=== PATIENT | male | born 1995 | race Caucasian/White ===

== ENCOUNTER 2019-07-09 23:20 | Emergency (ER) | payer OTHER ==
[2019-07-09] MEDS ORDERED: FLUORESCEIN SODIUM OPHTH STRIP LEFT_EYE ONE (23:35)
[2019-07-09] MEDS ORDERED: TETRACAINE HCL 0.5% OPHTH SOL 1 DROP ONE (23:35)
[2019-07-09] MEDS ORDERED: TETRACAINE HCL 0.5% OPHTH SOL 1 DROP LEFT_EYE ONE (23:35)
[2019-07-09] MEDS ORDERED: ERYTHROMYCIN OPHTH OINT 1 APPLIC LEFT_EYE ONE (23:43)
[2019-07-09 23:46] VITALS: TEMP 98.9; O2SAT 98
--- NOTE | 2019-07-09 23:46 | ED.PDOC ---
History of Present Illness - General Chief Complaint: Eye Problems Stated Complaint: foreign body in left eye Time Seen by Provider: 07/09/19 23:34 Source: patient Exam Limitations: no limitations - History of Present Illness Initial Comments: the patient is a 24-year-old male presenting to the emergency room secondary to left eye discomfort for the last 3 days. He was working outside when he got something in it. He has had subsequent burning and stinging and mild blurry vision since. On fluorescein exam here the patient does appear to have a small corneal abrasion at approximately 3:00. It does appear fairly superficial. I see no evidence of any foreign body otherwise in the eye or underneath the eyelids. Pupil is reactive. Red reflexes present. Timing/Duration: other - 3 days Severity: moderate Improving Factors: nothing Worsening Factors: nothing Associated Symptoms: denies symptoms Allergies/Adverse Reactions: Allergies NO KNOWN ALLERGY Allergy (Verified 09/12/14 22:25) Home Medications: Ambulatory Orders Acetaminophen W/ Codeine [Tylenol w/Codeine 300-30 mg] 1 tab PO Q3-4H PRN #30 tab 09/12/14 Gentamicin 0.3% Ophth Andra [Garamycin Opthalmic Solution] 1 drop BOTH_EARS Q4-6H #1 bottle 09/12/14 Review of Systems - Review of Systems Constitutional: States: no symptoms reported EENTM: States: see HPI Respiratory: States: no symptoms reported Cardiology: States: no symptoms reported Gastrointestinal/Abdominal: States: no symptoms reported Genitourinary: States: no symptoms reported Musculoskeletal: States: no symptoms reported Skin: States: no symptoms reported Neurological: States: no symptoms reported Endocrine: States: no symptoms reported All other Systems: No Change from Baseline Past Medical History (General) - Patient Medical History Hx Seizures: No Hx Stroke: No Hx Dementia: No Hx Asthma: No Hx of COPD: No Hx Cardiac Disorders: No Hx Congestive Heart Failure: No Hx Pacemaker: No Hx Hypertension: No Hx Thyroid Disease: No Hx Diabetes: No Hx Gastroesophageal Reflux: No Hx Renal Disease: No Hx Cancer: No Hx of HIV: No Hx Hepatitis C: No Hx MRSA: No - Vaccination History Hx Tetanus, Diphtheria Vaccination: Yes - Social History Hx Tobacco Use: No Hx Alcohol Use: Yes Hx Substance Use: No Hx Substance Use Treatment: No Hx Depression: No - Female History Patient : No Family Medical History - Family History Mother Family History: Unknown Physical Exam - Physical Exam General Appearance: Alert, Comfortable, No apparent distress Eye Exam: right normal, left other - see history of present illness Ears, Nose, Throat: hearing grossly normal, normal pharynx Neck: full range of motion Respiratory: no respiratory distress, no accessory muscle use Cardiovascular/Chest: normal peripheral pulses, no edema Peripheral Pulses: radial,right: 2+, radial,left: 2+ Gastrointestinal/Abdominal: other - obese Rectal Exam: deferred Extremity: normal range of motion, no pedal edema, normal capillary refill 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 I found no evidence of any foreign body on the exam. Motrin or Aleve can be used for discomfort. He will be written for erythromycin ointment to be used for the next week. He needs to avoid direct airflow to the eye. He needs to wear glasses or sunshades. Avoid sleeping under a fan or vent. He also needs to waste picker some saline rewetting drops to use every couple of hours for the next week. ER warnings were given. Departure - Departure Clinical Impression: Corneal abrasion Qualifiers: Encounter type: initial encounter Laterality: left Qualified Code(s): S05.02XA - Injury of conjunctiva and corneal abrasion without foreign body, left eye, initial encounter Disposition: Discharge to Home or Self Care Condition: Fair Departure Forms: ED Discharge - Pt. Copy, Patient Portal Self Enrollment Instructions: Corneal Abrasion (DC) Diet: regular diet Activity: increase activity as tolerated Referrals: Christina Leal NP [Primary Care Provider] - 1-2 Weeks Home Medications: Ambulatory Orders Acetaminophen W/ Codeine [Tylenol w/Codeine 300-30 mg] 1 tab PO Q3-4H PRN #30 tab 09/12/14 Gentamicin 0.3% Ophth Andra [Garamycin Opthalmic Solution] 1 drop BOTH_EARS Q4-6H #1 bottle 09/12/14 Additional Instructions: the patient is a 24-year-old male presenting to the emergency room with what appears to be a corneal abrasion of the left eye of about 3 days' duration. I found no evidence of any foreign body on the exam. Motrin or Aleve can be used for discomfort. He will be written for erythromycin ointment to be used for the next week. He needs to avoid direct airflow to the eye. He needs to wear glasses or sunshades. Avoid sleeping under a fan or vent. He also needs to waste picker some saline rewetting drops to use every couple of hours for the next week. ER warnings were given.
[2019-07-09 23:57] VITALS: BP 154/111
== END 2019-07-09 23:54 | disposition home or self-care (01) ==
LOC: ER 23:20
DX: S05.02XA Injury of conjunctiva and corneal abrasion without foreign body, left eye, initial encounter (principal); X58.XXXA Exposure to other specified factors, initial encounter; Y92.9 Unspecified place or not applicable